=== PATIENT | female | born 2000 | race Caucasian/White ===

== ENCOUNTER 2022-05-31 10:34 | Emergency (ER) | payer MEDICAID ==
[~2022-05-31] VITALS: Ht 165.1 cm; Wt 91.0 kg
[2022-05-31 10:42] VITALS: BP 121/86
[2022-05-31] MEDS ORDERED: TOPUD MT (21:15)
== END 2022-05-31 15:56 | disposition left against medical advice (07) ==
LOC: ER 10:34
DX: Z53.21 Procedure and treatment not carried out due to patient leaving prior to being seen by health care provider (principal)
CPT/HCPCS: 99281

== ENCOUNTER 2022-05-31 17:46 | Emergency (ER) | payer MEDICAID ==
[~2022-05-31] VITALS: Ht 167.6 cm; Wt 81.0 kg
[2022-05-31 18:02] VITALS: BP 115/69
[2022-05-31] MEDS ORDERED: ACETAMINOPHEN 325MG TABLET PO ONE (19:30)
[2022-05-31] MEDS ORDERED: TOPUD MT (21:15)
[2022-05-31] MEDS ORDERED: ACETAMINOPHEN 325MG TABLET ONE (21:44)
== END 2022-05-31 22:15 | disposition home or self-care (01) ==
LOC: ER 17:46
DX: M25.562 Pain in left knee (principal); J45.909 Unspecified asthma, uncomplicated
CPT/HCPCS: 73562; 81025; 99283; L1830; Z7610

== ENCOUNTER 2022-09-16 08:35 | Emergency (ER) | payer MEDICAID ==
[~2022-09-16] VITALS: Ht 157.5 cm; Wt 77.7 kg
[~2022-09-16 08:35] MED LIST: TOPUD MT
[2022-09-16 08:50] VITALS: TEMP 98.8; O2SAT 100
[2022-09-16 09:20] LABS: BASOPHILS % 0.5 % (0.0-2.0); EOSINOPHILS % 0.9 % (0.0-5.0); HEMATOCRIT. 40.9 % (36.0-48.0); HEMOGLOBIN. 14.3 g/dL (12.0-16.0); LYMPHOCYTES % 24.6 % (20.0-50.0); MEAN CORPUSCULAR HEMOGLOBIN 33.7 pg (28.0-32.0); MEAN CORPUSCULAR VOLUME 96.7 fL (81.0-99.0); MEAN PLATELET VOLUME 8.3 fl (7.4-10.4); MONOCYTES % 8.5 % (2.0-8.0); NEUTROPHILS % 65.5 % (40.0-76.0); PLATELET 340 x1000/uL (130-400); RED BLOOD CELL COUNT 4.23 mill/uL (4.2-5.4); RED CELL DISTRIBUTION WIDTH 13.9 % (11.6-14.6)
[2022-09-16 09:26] LABS: CHLORIDE 105 mEq/L (98-107)
[2022-09-16 09:39] LABS: B-HCG QUANTITATIVE < 1 mIU/mL (<3)
[2022-09-16 10:15] VITALS: BP 122/84; PULSE 76; RESP 18
[2022-09-16] MEDS ORDERED: HYDROCODONE/ACETAMINOPHEN 5/325MG TABLET PO ONE (10:15)
[2022-09-16] MEDS ORDERED: IBUP-2029 MT (10:18)
[2022-09-16 10:39] LABS: CLARITY URINE CLOUDY (CLEAR); COLOR URINE RED (YELLOW); KETONES URINE 3+ (NEGATIVE); LEUKOCYTE ESTERASE URINE 1+ (NEGATIVE); NITRITE URINE POSITIVE (NEGATIVE); OCCULT BLOOD URINE 3+ (NEGATIVE); PROTEIN URINE 4+ (NEGATIVE); SPECIFIC GRAVITY URINE 1.036 (1.005-1.030); UROBILINOGEN URINE 0.2 E.U./dL (0.2-1.0)
[2022-09-16] MEDS ORDERED: CEPH500T MT (13:24)
== END 2022-09-16 12:41 | disposition home or self-care (01) ==
LOC: ER 08:35
DX: N30.90 Cystitis, unspecified without hematuria (principal)
CPT/HCPCS: 80053; 81003; 84702; 85025; 86850; 86900; 86901; 87086; 36415; 76830; 76856; 99284; Z7610

== ENCOUNTER 2023-03-22 09:13 | Emergency (ER) | payer MEDICAID ==
[~2023-03-22] VITALS: Ht 162.6 cm; Wt 71.0 kg
[~2023-03-22 09:13] MED LIST changes: +CEPH500T MT; +IBUP-2029 MT
[2023-03-22 09:17] VITALS: BP 123/87; PULSE 81; RESP 16; TEMP 98.4; O2SAT 100
[2023-03-22 10:19] LABS: CLARITY URINE BLOODY (CLEAR); COLOR URINE RED (YELLOW)
[2023-03-22 10:22] LABS: HCG SCREEN NEGATIVE
[2023-03-22 10:23] LABS: BASOPHILS % 0.1 % (0.0-2.0); EOSINOPHILS % 0.3 % (0.0-5.0); HEMATOCRIT. 45.4 % (36.0-48.0); HEMOGLOBIN. 14.9 g/dL (12.0-16.0); LYMPHOCYTES % 15.1 % (20.0-50.0); MEAN CORPUSCULAR HEMOGLOBIN 32.6 pg (28.0-32.0); MEAN CORPUSCULAR HGB CONC 32.9 g/dL (31.0-37.0); MEAN PLATELET VOLUME 8.1 fl (7.4-10.4); MONOCYTES % 4.8 % (2.0-8.0); NEUTROPHILS % 79.7 % (40.0-76.0); PLATELET 316 x1000/uL (130-400); RED BLOOD CELL COUNT 4.59 mill/uL (4.2-5.4); WHITE BLOOD COUNT 8.2 x1000/uL (4.5-11.0)
[2023-03-22 10:27] LABS: ALANINE AMINOTRANSFERASE 15 IU/L (10-49); ALBUMIN 4.8 g/dL (3.2-4.8); ASPARTATE AMINOTRANSFERASE 26 IU/L (<34); BILIRUBIN TOTAL 0.8 mg/dL (0.1-1.0); CALCIUM 9.2 mg/dL (8.7-10.4); CARBON DIOXIDE 22 mEq/L (21-32); CHLORIDE 106 mEq/L (98-107); CREATININE 0.7 mg/dL (0.6-1.0); GLUCOSE 85 mg/dL (70-105); POTASSIUM 3.7 mEq/L (3.5-5.1); PROTEIN TOTAL 8.3 g/dL (6.0-8.3); SODIUM 141 mEq/L (136-145); UREA NITROGEN BLOOD 8 mg/dL (9-23)
[2023-03-22 10:29] LABS: B-HCG QUANTITATIVE < 1 mIU/mL (<3)
[2023-03-22 11:28] LABS: RBC URINE TNTC /hpf (0-2)
[2023-03-22 11:29] LABS: SQUAMOUS EPITHELIAL CELL URINE 3+ /lpf (RARE/1+)
[2023-03-22 11:31] LABS: BACTERIA URINE 1+; TRICHOMONAS URINE FEW
[2023-03-22 11:34] LABS: GLUCOSE URINE NEGATIVE (NEGATIVE); KETONES URINE NEGATIVE (NEGATIVE); NITRITE URINE POSITIVE (NEGATIVE); OCCULT BLOOD URINE 2+ (NEGATIVE); PH URINE >=9.0 (4.5-8.0); PROTEIN URINE 2+ (NEGATIVE); SPECIFIC GRAVITY URINE 1.029 (1.005-1.030); UROBILINOGEN URINE 0.2 E.U./dL (0.2-1.0)
[2023-03-22 11:35] LABS: LEUKOCYTE ESTERASE URINE 3+ (NEGATIVE)
[2023-03-22] MEDS ORDERED: ONDA4TAB11 PO (12:05)
[2023-03-22] MEDS ORDERED: NITR-87 MT (12:05)
[2023-03-22 12:54] LABS: *AMPHETAMINES SCREEN URINE NEGATIVE (NEGATIVE); *BARBITURATES SCREEN URINE NEGATIVE (NEGATIVE); *BENZODIAZEPINES SCREEN URINE NEGATIVE (NEGATIVE); *COCAINE SCREEN URINE NEGATIVE (NEGATIVE); ECSTASY MDMA SCREEN URINE NEGATIVE (NEGATIVE); METHADONE URINE SCREEN Neg (NEGATIVE); OPIATES URINE SCREEN NEGATIVE (NEGATIVE); PHENCYCLIDINE URINE SCREEN NEGATIVE (NEGATIVE)
== END 2023-03-22 12:28 ==
LOC: ER 09:27
DX: N39.0 Urinary tract infection, site not specified (principal); J45.909 Unspecified asthma, uncomplicated
CPT/HCPCS: 36415; 76830; 76856; 80053; 80305; 81003; 84702; 84703; 85025; 86850; 86900; 99284